=== PATIENT | female | born 1995 | race American Indian/Alaskan Native ===

== ENCOUNTER 2018-07-31 09:27 | Emergency (ER) | payer MEDICAID, OTHER ==
[2018-07-31] MEDS ORDERED: NACL 0.9% 1000 ML 1,000 ML IV ONE (09:55)
[2018-07-31 10:16] LABS: Bilirubin,Urine NEG (Negative); Blood,Urine NEG (Negative); Color,Urine Straw (Yellow); HCG Qualitative,Urine Negative (Negative); Protein,Urine <15 mg/dL mg/dL (Negative); Urobilinogen,Urine < 2.0 mg/dL (<2.0)
[2018-07-31] MEDS ORDERED: TORADOL IV ONE (10:59)
[2018-07-31] MEDS ORDERED: ZOFRAN IV ONE (10:59)
[2018-07-31 11:02] LABS: Red Blood Count 4.73 M/mm3 (3.65-5.03)
[2018-07-31 11:03] LABS: Basophils % (Auto) 0.2 % (0.0-1.8); Eosinophils # (Auto) 0.1 K/mm3 (0.0-0.4); Eosinophils % (Auto) 1.2 % (0.0-4.3); Hematocrit 36.8 % (30.3-42.9); Hemoglobin 11.6 gm/dl (10.1-14.3); Lymphocytes # (Auto) 1.8 K/mm3 (1.2-5.4); Lymphocytes % (Auto) 24.4 % (13.4-35.0); Mean Corpuscular HGB Conc 32 % (30-34); Mean Corpuscular Volume 78 fl (79-97); Monocytes # (Auto) 0.5 K/mm3 (0.0-0.8); Monocytes % (Auto) 6.4 % (0.0-7.3); Platelet Count 233 K/mm3 (140-440)
[2018-07-31 11:08] LABS: Alanine Aminotransferase 8 units/L (7-56); Albumin 4.2 g/dL (3.9-5); BUN/Creatinine Ratio 23; Blood Urea Nitrogen 14 mg/dL (7-17); Calcium 8.6 mg/dL (8.4-10.2); Hemolysis Index 5
[2018-07-31 12:28] LABS: Bilirubin,Urine NEG (Negative); Blood,Urine NEG (Negative); Color,Urine Straw (Yellow); Protein,Urine <15 mg/dL mg/dL (Negative); Urobilinogen,Urine < 2.0 mg/dL (<2.0); WBC,Urine < 1.0 /HPF (0.0-6.0)
[2018-07-31 12:35] LABS: HCG Qualitative,Urine Negative (Negative)
--- NOTE | 2018-07-31 12:45 | Cat Scan Report ---
FINAL REPORT EXAM: CT ABDOMEN PELVIS W CON HISTORY: LLQ pain COMPARISON: None. TECHNIQUE: Multiple contiguous axial images were obtained from the lung bases to the pubic symphysis after administration of IV contrast. Reformatted sagittal and coronal images were available for revi ew. FINDINGS: Lung bases: Normal. Visualized heart and mediastinum: Normal. Liver: Normal. Spleen: Normal. Pancreas: Normal. Gallbladder and Biliary Tree: No calcified gallstones. No biliary ductal dilatation. Adrenal glands: Normal. Kidneys: Symmetric enhancement to both kidneys. No hydronephrosis. Bladder: Normal. Pelvic organs: Peripherally enhancing 1.8 centimeters cystic structure in the left ovary, likely repr esentative of a corpus luteum cyst. Bowel: No focal wall thickening. No evidence of obstruction. Normal appendix without surrounding infl ammatory change. Peritoneum: Small amount of free fluid in the pelvis. No free air. No significant lymphadenopathy Vasculature: Normal. Bones and soft tissues: No suspicious osseous lesions. No acute fracture or dislocation. IMPRESSION: 1. Likely corpus luteum cyst within the left ovary. 2. Small amount of free fluid in the pelvis, likely physiologic. 3. No bowel obstruction. Normal appendix.
[2018-07-31] MEDS ORDERED: ULTRAM PO ONE (12:56)
[2018-07-31] MEDS ORDERED: ULTRAM ONE (12:59)
--- NOTE | 2018-07-31 13:11 | Emergency Department Report ---
ED Abdominal Pain HPI - General Chief Complaint: Abdominal Pain Stated Complaint: ABD/BACK PAIN Time Seen by Provider: 07/31/18 10:54 Source: patient Mode of arrival: Ambulatory Limitations: No Limitations - History of Present Illness Initial Comments: Patient is a 22-year-old -[place] female who is complaining of left lower quadrant and lower back pain since earlier this week. Patient states for the past 3-4 days pain has been colicky in nature and sharp however is been constant last 24 hours. Patient was seen by urgent care had an x-ray of abdomen and was told she may have "heart blockage". Patient states pain is 10 out of 10 and worse when she is lying on her back or after intercourse. Patient has some mild nausea but no vomiting. Severity scale (0 -10): 9 Quality: stabbing Consistency: constant Associated Symptoms: nausea. denies: vomiting, diarrhea, fever, chills, constipation, dysuria, hematemesis, hematochezia, melena, hematuria, anorexia - Related Data Previous Rx's Medication Instructions Recorded Last Taken Type Acetaminophen/Codeine 1 tab PO Q6H PRN #15 tab 08/27/14 Unknown Rx [Acetaminophen-Codeine #3 TAB] medroxyPROGESTERone ACETATE 5 mg PO QDAY #7 tablet 08/27/14 Unknown Rx [Provera] Clindamycin [Clindamycin CAP] 300 mg PO Q8H #30 cap 04/02/15 Unknown Rx HYDROcodone/APAP 5-325 [[place] 1 each PO Q6HR PRN #20 tablet 04/02/15 Unknown Rx 5/325] Mupirocin [Bactroban 2%] 1 applic TP TID #1 tube 04/02/15 Unknown Rx Docusate Sodium [Colace] 100 mg PO BID #30 capsule 07/31/18 Unknown Rx HYDROcodone/APAP 5-325 [[place] 1 each PO Q4HR PRN #12 tablet 07/31/18 Unknown Rx 5/325] Ibuprofen [Motrin] 600 mg PO Q8H PRN #20 tablet 07/31/18 Unknown Rx Allergies Allergy/AdvReac Type Severity Reaction Status Date / Time No Known Allergies Allergy Verified 08/25/13 19:36 ED Review of Systems ROS: Stated complaint: ABD/BACK PAIN Other details as noted in HPI Comment: All other systems reviewed and negative ED Past Medical Hx - Past Medical History Previous Medical History?: Yes Hx Congestive Heart Failure: No Hx Diabetes: No Hx Asthma: No Hx COPD: No Additional medical history: anemia. pancreatitis - Surgical History Past Surgical History?: Yes Additional Surgical History: d&c - Social History Smoking Status: Never Smoker Substance Use Type: Marijuana - Medications Home Medications: Home Medications Medication Instructions Recorded Confirmed Last Taken Type Acetaminophen/Codeine 1 tab PO Q6H PRN #15 tab 08/27/14 Unknown Rx [Acetaminophen-Codeine #3 TAB] medroxyPROGESTERone ACETATE 5 mg PO QDAY #7 tablet 08/27/14 Unknown Rx [Provera] Clindamycin [Clindamycin CAP] 300 mg PO Q8H #30 cap 04/02/15 Unknown Rx HYDROcodone/APAP 5-325 [[place] 1 each PO Q6HR PRN #20 tablet 04/02/15 Unknown Rx 5/325] Mupirocin [Bactroban 2%] 1 applic TP TID #1 tube 04/02/15 Unknown Rx Docusate Sodium [Colace] 100 mg PO BID #30 capsule 07/31/18 Unknown Rx HYDROcodone/APAP 5-325 [[place] 1 each PO Q4HR PRN #12 tablet 07/31/18 Unknown Rx 5/325] Ibuprofen [Motrin] 600 mg PO Q8H PRN #20 tablet 07/31/18 Unknown Rx ED Physical Exam - General Limitations: No Limitations General appearance: alert, in no apparent distress - Head Head exam: Present: atraumatic, normocephalic - Eye Eye exam: Present: normal appearance - ENT ENT exam: Present: mucous membranes moist - Neck Neck exam: Present: normal inspection - Respiratory Respiratory exam: Present: normal lung sounds bilaterally. Absent: respiratory distress, wheezes, rales, rhonchi - Cardiovascular Cardiovascular Exam: Present: regular rate, normal rhythm, normal heart sounds. Absent: systolic murmur, diastolic murmur, rubs, gallop - GI/Abdominal GI/Abdominal exam: Present: soft, tenderness (left lower quadrant tenderness without rebound or guarding), normal bowel sounds. Absent: distended, guarding, rebound - Extremities Exam Extremities exam: Present: normal inspection - Back Exam Back exam: Present: normal inspection - Neurological Exam Neurological exam: Present: alert, oriented X3 - Psychiatric Psychiatric exam: Present: normal affect, normal mood - Skin Skin exam: Present: warm, dry, intact, normal color. Absent: rash ED Course Vital Signs 07/31/18 07/31/18 07/31/18 09:41 11:22 12:59 Temperature 98.0 F Pulse Rate 83 Respiratory 16 18 18 Rate Blood Pressure 110/56 O2 Sat by Pulse 98 Oximetry ED Medical Decision Making - Lab Data Result diagrams: 07/31/18 10:27 07/31/18 10:27 Lab Results 07/31/18 07/31/18 07/31/18 Range/Units 09:56 10:27 10:27 WBC 7.5 (4.5-11.0) K/mm3 RBC 4.73 (3.65-5.03) M/mm3 Hgb 11.6 (10.1-14.3) gm/dl Hct 36.8 (30.3-42.9) % MCV 78 L (79-97) fl MCH 25 L (28-32) pg MCHC 32 (30-34) % RDW 16.0 H (13.2-15.2) % Plt Count 233 (140-440) K/mm3 Lymph % (Auto) 24.4 (13.4-35.0) % [place] % (Auto) 6.4 (0.0-7.3) % Eos % (Auto) 1.2 (0.0-4.3) % Baso % (Auto) 0.2 (0.0-1.8) % Lymph # 1.8 (1.2-5.4) K/mm3 [place] # 0.5 (0.0-0.8) K/mm3 Eos # 0.1 (0.0-0.4) K/mm3 Baso # 0.0 (0.0-0.1) K/mm3 Seg Neutrophils % 67.8 (40.0-70.0) % Seg Neutrophils # 5.1 (1.8-7.7) K/mm3 Sodium 138 (137-145) mmol/L Potassium 4.7 (3.6-5.0) mmol/L Chloride 102.3 (98-107) mmol/L Carbon Dioxide 26 (22-30) mmol/L Anion Gap 14 mmol/L BUN 14 (7-17) mg/dL Creatinine 0.6 L (0.7-1.2) mg/dL Estimated GFR > 60 ml/min BUN/Creatinine Ratio 23 % Glucose 94 (65-100) mg/dL Calcium 8.6 (8.4-10.2) mg/dL Total Bilirubin 0.20 (0.1-1.2) mg/dL AST 11 (5-40) units/L ALT 8 (7-56) units/L Alkaline Phosphatase 48 (35-129) units/L Total Protein 7.2 (6.3-8.2) g/dL Albumin 4.2 (3.9-5) g/dL Albumin/Globulin Ratio 1.4 % Urine Color Straw (Yellow) Urine Turbidity Clear (Clear) Urine pH 8.0 H (5.0-7.0) Ur Specific [place] 1.017 (1.003-1.030) Urine Protein <15 mg/dl (Negative) mg/dL Urine Glucose (UA) Neg (Negative) mg/dL Urine Ketones Neg (Negative) mg/dL Urine Blood Neg (Negative) Urine Nitrite Neg (Negative) Urine Bilirubin Neg (Negative) Urine Urobilinogen < 2.0 (<2.0) mg/dL Ur Leukocyte Esterase Neg (Negative) Urine WBC (Auto) 0.0 (0.0-6.0) /HPF Urine RBC (Auto) 1.0 (0.0-6.0) /HPF U Epithel Cells (Auto) (0-13.0) /HPF Urine HCG, Qual Negative (Negative) 07/31/18 Range/Units 11:00 WBC (4.5-11.0) K/mm3 RBC (3.65-5.03) M/mm3 Hgb (10.1-14.3) gm/dl Hct (30.3-42.9) % MCV (79-97) fl MCH (28-32) pg MCHC (30-34) % RDW (13.2-15.2) % Plt Count (140-440) K/mm3 Lymph % (Auto) (13.4-35.0) % [place] % (Auto) (0.0-7.3) % Eos % (Auto) (0.0-4.3) % Baso % (Auto) (0.0-1.8) % Lymph # (1.2-5.4) K/mm3 [place] # (0.0-0.8) K/mm3 Eos # (0.0-0.4) K/mm3 Baso # (0.0-0.1) K/mm3 Seg Neutrophils % (40.0-70.0) % Seg Neutrophils # (1.8-7.7) K/mm3 Sodium (137-145) mmol/L Potassium (3.6-5.0) mmol/L Chloride (98-107) mmol/L Carbon Dioxide (22-30) mmol/L Anion Gap mmol/L BUN (7-17) mg/dL Creatinine (0.7-1.2) mg/dL Estimated GFR ml/min BUN/Creatinine Ratio % Glucose (65-100) mg/dL Calcium (8.4-10.2) mg/dL Total Bilirubin (0.1-1.2) mg/dL AST (5-40) units/L ALT (7-56) units/L Alkaline Phosphatase (35-129) units/L Total Protein (6.3-8.2) g/dL Albumin (3.9-5) g/dL Albumin/Globulin Ratio % Urine Color Straw (Yellow) Urine Turbidity Clear (Clear) Urine pH 8.0 H (5.0-7.0) Ur Specific [place] 1.035 H (1.003-1.030) Urine Protein <15 mg/dl (Negative) mg/dL Urine Glucose (UA) Neg (Negative) mg/dL Urine Ketones Neg (Negative) mg/dL Urine Blood Neg (Negative) Urine Nitrite Neg (Negative) Urine Bilirubin Neg (Negative) Urine Urobilinogen < 2.0 (<2.0) mg/dL Ur Leukocyte Esterase Neg (Negative) Urine WBC (Auto) < 1.0 (0.0-6.0) /HPF Urine RBC (Auto) 2.0 (0.0-6.0) /HPF U Epithel Cells (Auto) < 1.0 (0-13.0) /HPF Urine HCG, Qual Negative (Negative) - Radiology Data [facility] [address] [place] [address] Cat Scan Report Signed Patient: GARY GUZMAN MR#: [id number] : 1995 Acct:[id number] Age/Sex: 22 / F ADM Date: 07/31/18 Loc: ED Attending Dr: Ordering Physician: VERA KNOTT MD Date of Service: 07/31/18 Procedure(s): CT abdomen pelvis w con Accession Number(s): [id number] cc: VERA KNOTT MD FINAL REPORT EXAM: CT ABDOMEN PELVIS W CON HISTORY: LLQ pain COMPARISON: None. TECHNIQUE: Multiple contiguous axial images were obtained from the lung bases to the pubic symphysis after administration of IV contrast. Reformatted sagittal and coronal images were avail able for review. FINDINGS: Lung bases: Normal. Visualized heart and mediastinum: Normal. Liver: Normal. Spleen: Normal. Pancreas: Normal. Gallbladder and Biliary Tree: No calcified gallstones. No biliary ductal dilatation. Adrenal glands: Normal. Kidneys: Symmetric enhancement to both kidneys. No hydronephrosis. Bladder: Normal. Pelvic organs: Peripherally enhancing 1.8 centimeters cystic structure in the left ovary, likely sales development representative of a corpus luteum cyst. Bowel: No focal wall thickening. No evidence of obstruction. Normal appendix without surrounding inflammatory change. Peritoneum: Small amount of free fluid in the pelvis. No free air. No significant lymphadenopathy Vasculature: Normal. Bones and soft tissues: No suspicious osseous lesions. No acute fracture or dislocation. IMPRESSION: 1. Likely corpus luteum cyst within the left ovary. 2. Small amount of free fluid in the pelvis, likely physiologic. 3. No bowel obstruction. Normal appendix. Transcribed By: FILI Dictated By: MARCELINO EAST MD Electronically Authenticated By: MARCELINO EAST MD Signed Date/Time: 07/31/18 1245 DD/ 46 TD/TT: 07/31/18 1247 - Medical Decision Making Patient is 22-year-old [place] female who is presenting with lower abdominal pain mostly in the left lower quadrant. Patient noted to have a ovarian cyst present in the left ovary. Patient likely having pain from this as the rest of the CT is within normal limits. She'll be discharged home with follow with [employer] as well as pain management. Critical care attestation.: If time is entered above; I have spent that time in minutes in the direct care of this critically ill patient, excluding procedure time. ED Disposition Clinical Impression: Ovarian cyst Qualifiers: Laterality: left Qualified Code(s): N83.202 - Unspecified ovarian cyst, left side Disposition: - TO HOME OR SELFCARE Is pt being admited?: No Does the pt Need Aspirin: No Condition: Stable Instructions: Ovarian Cyst (ED) Referrals: WINNIE MEDLEY MD [Staff Physician] - 3-5 Days Time of Disposition: 13:12
[2018-07-31 13:33] VITALS: BP 127/72
== END 2018-07-31 13:31 | disposition home or self-care (01) ==
LOC: ED 09:27
DX: N83.202 Unspecified ovarian cyst, left side (principal); F12.10 Cannabis abuse, uncomplicated; Z86.2 Personal history of diseases of the blood and blood-forming organs and certain disorders involving the immune mechanism
CPT/HCPCS: 36415; 74177; 80053; 81001; 81025; 85025; 96374; 96375; 99284; J1885; J2405; J7030; Q9967

== ENCOUNTER 2021-05-25 17:23 | Emergency (ER) | payer SELFPAY ==
[2021-05-25] MEDS ORDERED: traMADol 50 MG TAB PO ONE (17:54)
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
[2021-05-25 19:21] VITALS: BP 100/50
== END 2021-05-25 22:53 | disposition home or self-care (01) ==
LOC: ED 17:23
DX: S20.211A Contusion of right front wall of thorax, initial encounter (principal); S40.021A Contusion of right upper arm, initial encounter; S70.01XA Contusion of right hip, initial encounter; V49.59XA Passenger injured in collision with other motor vehicles in traffic accident, initial encounter; X58.XXXA Exposure to other specified factors, initial encounter; Y93.89 Activity, other specified; Y92.89 Other specified places as the place of occurrence of the external cause; Y99.8 Other external cause status
CPT/HCPCS: 71046; 99283

== ENCOUNTER 2021-06-24 16:46 | Emergency (ER) | payer SELFPAY ==
[2021-06-24 17:09] VITALS: BP 125/94
--- NOTE | 2021-06-24 18:18 | Emergency Department Report ---
Minor Respiratory - HPI Chief Complaint: Upper Respiratory Infection Stated Complaint: covid? Time Seen by Provider: 06/24/21 18:03 Minor Respiratory: Yes Rhinorrhea, Yes Able to Tolerate Fluids, Yes Cough, Yes Sick Contacts, No Sore Throat, No Hemoptysis, No Chest Pain, No Shortness of Breath, No Fever Other History: Chief complaint: Cold symptoms, I need a Covid test to return to work. HPI: This is a 25-year-old female with history of pancreatitis and anemia who is vaccinated against COVID-19 who was exposed to Covid infected persons at her job. She has runny nose body aches diarrhea loss of taste and smell. She was unable to find Covid testing site with available appointments. She is unable to return to work until she receives a Covid test. Mild symptoms. She denies chest pain. She denies shortness of breath. ED Review of Systems ROS: Stated complaint: covid? Other details as noted in HPI Comment: All other systems reviewed and negative Constitutional: denies: chills, fever, malaise ENT: congestion Cardiovascular: denies: chest pain Gastrointestinal: diarrhea. denies: abdominal pain, nausea, vomiting Musculoskeletal: myalgia ED Past Medical Hx - Past Medical History Previous Medical History?: Yes Hx Congestive Heart Failure: No Hx Diabetes: No Hx Asthma: No Hx COPD: No Additional medical history: anemia. pancreatitis - Surgical History Past Surgical History?: Yes Additional Surgical History: d&c - Social History Smoking Status: Never Smoker Substance Use Type: Marijuana - Medications Home Medications: Home Medications Medication Instructions Recorded Confirmed Last Taken Type Ibuprofen [Motrin 600 MG tab] 600 mg PO Q8H PRN #20 tablet 05/25/21 Unknown Rx Metaxalone [Skelaxin] 800 mg PO TID #9 tablet 05/25/21 Unknown Rx Minor Respiratory Exam - Exam General: Vital signs noted. No distress. Alert and acting appropriately. HEENT: Yes Moist Mucous Membranes, No Pharyngeal Erythema, No Pharyngeal Exudates, No Rhinorrhea, No Conjuctival Injection Neck: Yes Supple, No Adenopathy Lungs: Yes Good Air Exchange, No Wheezes, No Ronchi, No Stridor, No Cough, No Labored Respirations, No Retractions, No Use of Accessory Muscles, No Other Abnormal Lung Sounds Heart: Yes Regular, No Murmur Abdomen: Yes Normal Bowel Sounds, No Tenderness, No Peritoneal Signs Skin: No Rash, No Edema Neurologic: Alert and oriented, no deficits. Musculoskeletal: Unremarkable. ED Course Vital Signs 06/24/21 17:07 Temperature 98.4 F Pulse Rate 98 H Respiratory 16 Rate Blood Pressure 125/94 O2 Sat by Pulse 98 Oximetry ED Medical Decision Making - Medical Decision Making Viral syndrome, suspected Covid, patient understands there are small risk of breakthrough Covid infection in spite vaccination. I recommended Google search for Covid testing near her address. Critical care attestation.: If time is entered above; I have spent that time in minutes in the direct care of this critically ill patient, excluding procedure time. ED Disposition Clinical Impression: Viral syndrome Disposition: HOME / SELF CARE / HOMELESS Is pt being admited?: No Does the pt Need Aspirin: No Condition: Stable Instructions: Viral Respiratory Infection, Hfuf-So-Gilm Referrals: CR MURDOCK MD [Staff Physician] - MAJO Forms: Work/School Release Form(ED)
== END 2021-06-24 18:32 | disposition home or self-care (01) ==
LOC: ED 16:46
DX: B34.9 Viral infection, unspecified (principal); F12.90 Cannabis use, unspecified, uncomplicated
CPT/HCPCS: 99282